=== PATIENT | female | born 1990 | race African-American/Black ===

== ENCOUNTER 2016-07-08 14:52 | Emergency (ER) | payer OTHER ==
[~2016-07-08] VITALS: Ht 170.2 cm; Wt 68.0 kg
[~2016-07-08 14:52] MED LIST: METO10TA81 PO
[2016-07-08 14:55] VITALS: BP 124/86
[2016-07-08] MEDS ORDERED: NEOMY/BACITR/POLYMYXIN OINT PACKET. TP ONE (15:15)
--- NOTE | 2016-07-08 15:22 | PHYS DOC ---
Past Medical History Past Medical History: No Pertinent History Past Surgical History: No Surgical History Alcohol Use: None Drug Use: None Adult General Chief Complaint Chief Complaint: THUMB HPI HPI Patient is a 26 year old female who presents who is currently approximately 5 months , patient presents today with a partial nail avulsion of the left thumb. Patient states she hit her left thumb on the steering wheel and broke the tip of her acrylic fingernail. Patient states her tetanus is up-to- date. Review of Systems Review of Systems Constitutional: Denies fever or chills [] Eyes: Denies change in visual acuity, redness, or eye pain [] : Denies dysuria or hematuria [] Musculoskeletal: Denies back pain or joint pain [] Integument: partial nail avulsion of the left thumb Neurologic: Denies headache, focal weakness or sensory changes [] Endocrine: Denies polyuria or polydipsia [] Current Medications Current Medications Current Medications Medications (Trade) Dose Ordered Sig/Ara Start Time Stop Time Status Last Admin Dose Admin Neomycin/ Polymyxin/ Bacitracin (Triple Antibiotic Ointment) 1 pkt 1X ONCE 07/08/16 15:15 07/08/16 15:16 Allergies Allergies Allergies Coded Allergies Type Severity Reaction Last Updated Verified No Known Drug Allergies 03/07/16 No Physical Exam Physical Exam Constitutional: Well developed, well nourished, no acute distress, non-toxic appearance. [] HENT: Normocephalic, atraumatic, bilateral external ears normal, oropharynx moist, no oral exudates, nose normal. [] Eyes: PERRLA, EOMI, conjunctiva normal, no discharge. [] Abdomen: Gravid abdomen. Bowel sounds normal, soft, no tenderness, no masses, no pulsatile masses. [] Skin: Partial nail avulsion to the distal end of the left thumb fingernail with approx. 20% loss of the nail, the rest of the nail is still attached to the nail bed. Bleeding is well controlled. Full range of motion to the affected thumb. +2 left radial pulse. Cap refill less than 2 seconds the left thumb. Sensation intact to the left thumb. Back: No tenderness, no CVA tenderness. [] Extremities: No tenderness, no cyanosis, no clubbing, ROM intact, no edema. [] Neurologic: Alert and oriented X 3, normal motor function, normal sensory function, no focal deficits noted. [] Psychologic: Affect normal, judgement normal, mood normal. [] Current Patient Data Vital Signs Vital Signs Date Time Temp Pulse Resp B/P Pulse Ox O2 Delivery O2 Flow Rate FiO2 07/08/16 14:55 98 109 20 97 Room Air 98.0 EKG EKG [] Radiology/Procedures Radiology/Procedures [] Course & Med Decision Making Course & Med Decision Making Pertinent Labs and Imaging studies reviewed. (See chart for details) Patient is in the ED with partial left thumb fingernail avulsion with 20% of the loss of the nail at the tip. Sensation is intact to the finger. She is and her shots are up to date. Patient was instructed to clean the area apply Neosporin to it. She was instructed to keep it clean and dry. She was provided return precautions. She is to follow-up with her own doctor in 1-2 weeks as needed. Dragon Disclaimer Dragon Disclaimer This electronic medical record was generated, in whole or in part, using a voice recognition dictation system. Departure Departure Impression: Primary Impression: Fingernail avulsion, partial Disposition: 01 HOME, SELF-CARE Condition: STABLE Referrals: NO PCP (PCP) Follow-up with the primary care doctor in 1-2 weeks. Patient Instructions: Nail Avulsion Injury Additional Instructions: You have partial fingernail avulsion. Please keep the affected area clean and dry. Apply Neosporin to the open area twice a day. Monitor the area for signs and symptoms of infection including increased redness warmth or odor drainage from the area and return to the ED if they occur. Follow-up with the primary care doctor in 1-2 weeks. Problem Qualifiers Primary Impression: Fingernail avulsion, partial Encounter type: initial encounter Qualified Code: S61.309A - Unspecified open wound of unspecified finger with damage to nail, initial encounter KAE NAJERA APRN Jul 08, 2016 15:22
== END 2016-07-08 15:33 | disposition home or self-care (01) ==
LOC: ER 14:52
DX: O26.892 Other specified pregnancy related conditions, second trimester (principal); S61.102A Unspecified open wound of left thumb with damage to nail, initial encounter; W22.8XXA Striking against or struck by other objects, initial encounter; Y93.89 Activity, other specified; Y92.89 Other specified places as the place of occurrence of the external cause; Y99.8 Other external cause status
CPT/HCPCS: 99282